=== PATIENT | female | born 1970 | race Caucasian/White ===

== ENCOUNTER 2020-09-18 10:04 | Day surgery (SDC) | payer BC ==
[~2020-09-18] VITALS: Ht 157.5 cm; Wt 52.2 kg
[~2020-09-18 10:04] MED LIST: FAMO-79 PO; MULT-449 PO; OMEP40CA42 PO; ONDA4TAB13 SL; tums PO
[2020-09-18] MEDS ORDERED: CHLORHEXIDINE 15 ML UDC MM ONE (10:30)
[2020-09-18 10:36] VITALS: BP 124/88
[2020-09-18] MEDS ORDERED: INDOCYANINE GREEN 25 MG VIAL ONE (10:44)
[2020-09-18 10:51] LABS: HCG UR SG 1.021 (1.003-1.030)
[2020-09-18] MEDS ORDERED: LIDOCAINE-MPF 1%, 2ML INFIL ONE (11:00)
[2020-09-18] MEDS ORDERED: INDOCYANINE GREEN 25 MG VIAL IVPush ONE (11:00)
[2020-09-18] MEDS ORDERED: LACTATED RINGERS 1,000 ML IV SCH (11:00)
[2020-09-18] MEDS ORDERED: MIDAZOLAM 1 MG/ML, 2ML ONE (11:38)
[2020-09-18] MEDS ORDERED: FENTANYL PF 100 MCG/2ML ONE ×2 (11:38→13:19)
[2020-09-18] MEDS ORDERED: BUPIVACAINE/PF-EPI 0.5% 1:200K ONE (11:59)
[2020-09-18] MEDS ORDERED: DEXAMETHASONE 4 MG/ML, 1ML ONE (12:26)
[2020-09-18] MEDS ORDERED: SUCCINYLCHOLINE 20 MG/ML, 10ML ONE (12:26)
[2020-09-18] MEDS ORDERED: CEFAZOLIN 1,000 MG ONE (12:26)
[2020-09-18] MEDS ORDERED: ONDANSETRON 2MG/ML, 2ML ONE ×2 (12:26→14:15)
[2020-09-18] MEDS ORDERED: EPHEDRINE 50 MG/ML, 1ML ONE (12:26)
[2020-09-18] MEDS ORDERED: PROPOFOL 10 MG/ML, 20ML ONE (12:26)
[2020-09-18] MEDS ORDERED: ROCURONIUM 10 MG/ML,10ML ONE (12:26)
[2020-09-18] MEDS ORDERED: LORazepam 2 MG/ML, 1ML IVPush PRN (13:00)
[2020-09-18] MEDS ORDERED: PROMETHAZINE 25 MG/ML, 1ML IVPush PRN (13:00)
[2020-09-18] MEDS ORDERED: MEPERIDINE/PF 25MG/0.5ML IVPush PRN (13:00)
[2020-09-18] MEDS ORDERED: HYDROcodone/APAP 7.5-325MG/15ML UDC PO PRN (13:00)
[2020-09-18] MEDS ORDERED: BUPIVACAINE/PF-EPI 0.5% 1:200K INFIL ONE (13:04)
[2020-09-18] MEDS ORDERED: DIPHENHYDRAMINE 50 MG/ML, 1ML IVPush PRN (13:30)
[2020-09-18] MEDS ORDERED: ONDANSETRON 2MG/ML, 2ML IVPush PRN (13:30)
[2020-09-18] MEDS ORDERED: morphine SULFATE 10 MG/ML, 1ML IVPush PRN (13:30)
[2020-09-18] MEDS ORDERED: HYDROcodone/APAP 5/325 TABLET PO PRN (13:30)
[2020-09-18] MEDS ORDERED: KETOROLAC 30 MG/1 ML IVPush PRN (13:30)
[2020-09-18] MEDS: FENTANYL PF 100 MCG/2ML IV PRN ×2 (13:35→13:43)
[2020-09-18] MEDS ORDERED: ACETAMINOPHEN 650 MG/20.3 ML UDC ONE (13:37)
[2020-09-18] MEDS ORDERED: OXYcodone 5 MG/5 ML ORAL.SOL UDC ONE (13:37)
[2020-09-18] MEDS: OXYcodone 5 MG/5 ML ORAL.SOL UDC PO PRN ×2 (13:39→16:01)
[2020-09-18] MEDS ORDERED: PROMETHAZINE 25 MG/ML, 1ML ONE (13:44)
[2020-09-18] MEDS ORDERED: HYDROmorphone 1 MG/ML, 1ML INJ ONE (14:04)
[2020-09-18] MEDS: HYDROmorphone 1 MG/ML, 1ML INJ IVPush PRN ×3 (14:07→14:25)
== END 2020-09-18 16:45 | disposition home or self-care (01) ==
LOC: OUT 10:04
PROVIDERS: ATTEND Surgery
DX: K80.10 Calculus of gallbladder with chronic cholecystitis without obstruction (principal); K66.0 Peritoneal adhesions (postprocedural) (postinfection); K21.9 Gastro-esophageal reflux disease without esophagitis; Z79.899 Other long term (current) drug therapy; Z87.891 Personal history of nicotine dependence; Z20.828 Contact with and (suspected) exposure to other viral communicable diseases
CPT/HCPCS: 47563; 81025; 88304; J0330; J0690; J1100; J1170; J2250; J2405; J2550; J2704; J3010; J7120; S2900; U0003